=== PATIENT | male | born 1995 | race Hispanic/Latino ===

== ENCOUNTER 2021-05-21 10:22 | Observation (INO) | payer SELFPAY ==
[2021-05-21] VITALS (8 sets, daily range): BP systolic 100–132; BP diastolic 64–85; PULSE 58–99; RESP 12–47; TEMP 36.5; O2SAT 98–100
--- NOTE | ~2021-05-21 | CT_ITS ---
EXAMINATION: CT diagnostic chest wo con DATE: 05/22/2021 16:02 INDICATION: right lung opacity TECHNIQUE: Computed tomography (CT) of the chest was performed without intravenous contrast. Addition al 3D reconstructions utilizing coronal maximum intensity projection (MIP) were performed. Automated exposure control and iterative reconstruction technique were employed. The dose-length product was 23 8.23 mGy-cm. COMPARISON: Chest radiograph dated 05/21/2021 FINDINGS: 1.9 x 1.3 cm mass in the right lower lobe which appears to be comprised of smaller nodules including a couple calcified nodules and which accounts for the opacity on the prior chest radiograph. There ar e numerous additional subcentimeter nodules in the right lower lobe with pleural and perilymphatic di stribution. There are couple additional tiny nodules in the immediately adjacent right middle lobe. R emainder of the lungs are clear. No pulmonary edema or pleural effusion. Heart size is normal. No per icardial effusion. Subtle calcification within mediastinal and right hilar lymph nodes consistent wit h old granulomatous disease. No pathologically enlarged thoracic lymphadenopathy. Diffuse hepatic sam atosis with focal sparing along the gallbladder fossa. Bones are unremarkable. IMPRESSION: 1. Multiple small pulmonary nodules with perilymphatic distribution in the right lower lobe, several of which have coalesced to form the larger 1.9 x 1.3 cm mass is seen on prior chest radiograph. Diffe rential would include sarcoidosis, silicosis or other pneumoconiosis and lymphangitic carcinomatosis. 2. Diffuse hepatic steatosis. Reviewed, dictated and finalized at location B. IMPRESSION: 1. Multiple small pulmonary nodules with perilymphatic distribution in the righ t lower lobe, several of which have coalesced to form the larger 1.9 x 1.3 cm m ass is seen on prior chest radiograph. Differential would include sarcoidosis, silicosis or other pneumoconiosis and lymphangitic carcinomatosis. 2. Diffuse hepatic steatosis.
--- NOTE | ~2021-05-21 | XR_ITS ---
XR chest 1V portable DATE: 05/21/2021 16:57 INDICATION: Hyperglycemia TECHNIQUE: Portable upright AP chest on 05/21/2021 at 1651 hours COMPARISON: None FINDINGS: Normal heart size. No hilar or mediastinal enlargement. There is patchy infiltrate in the right mid to lower lung. The remaining lung arnett are clear. No pl eural effusion or pulmonary vascular congestion or pneumothorax. IMPRESSION: Patchy right mid to lower lung infiltrate Reviewed, dictated and finalized at location A.
[2021-05-21 10:41] LABS: Glucose Point of Care 367 mg/dl (65-105)
[2021-05-21 11:56] LABS: Add Urine Microscopic? YES; Appearance Urine Clear (Clear); Bilirubin Urine Negative (Negative); Blood Urine Negative (Negative); Color Urine Yellow (Yellow); Glucose Urine UA 3+ mg/dL (Negative); Ketones Urine 1+ mg/dL (Negative); Leukocyte Esterase Ur Negative LEU/UL (Negative); Nitrate Urine Negative (Negative); Protein Urine Negative (Negative); Squamous Epithelial Cell Urine Rare /hpf (Few); Urobilinogen Urine Negative mg/dL (<2.0); WBC Urine 0-3 /hpf
[2021-05-21 11:57] LABS: Specific Grav Ur 1.031 (1.001-1.035)
[2021-05-21 12:47] LABS: Basophils Percent Auto 0.3 % (0.2-1.2); Eosinophils Absolute Auto 0.2 K/mm3 (0-0.3); Eosinophils Percent Auto 3.4 % (0-4.4); Hematocrit 44.8 % (42.0-52.0); Hemoglobin 15.9 g/dL (14.0-18.0); Immature Granulocyte Absolute 0.02 K/mm3 (0.00-0.031); Immature Granulocyte Percent A 0.3 % (0-0.5); Lymphocytes Absolute Auto 1.71 K/mm3 (0.9-3.2); Lymphocytes Percent Auto 29.2 % (18.3-44.2); Mean Corpuscular HGB Conc 35.5 g/dl (32-36); Mean Corpuscular Hemoglobin 29.1 pg (26-34); Mean Corpuscular Volume 82.1 fl (80-100); Mean Platelet Volume 10.1 fl (7.4-10.4); Monocytes Absolute Auto 0.3 K/mm3 (0.1-0.6); Monocytes Percent Auto 5.1 % (2.6-8.5); Neutrophils Absolute Auto 3.6 K/mm3 (1.3-6.7); Neutrophils Percent Auto 61.7 % (45.5-73.1); Platelet Count Result 166 k/mm3 (150-375); Red Blood Count 5.46 M/mm3 (4.6-6.20); Red Cell Distribution Width 11.6 % (11.5-14.5); White Blood Count 5.9 K/mm3 (4.5-10.0)
[2021-05-21 13:02] LABS: Alanine Aminotransferase 79 U/L (4-50); Albumin Level 4.6 g/dL (3.5-5.1); Alkaline Phosphatase 86 U/L (38-126); Anion Gap 11 mmol/L (8-16); Aspartate Amino Transferase 41 U/L (17-59); Bilirubin,Total 0.6 mg/dL (0.2-1.3); Blood Urea Nitrogen 12 mg/dL (9-20); Calcium 9.5 mg/dL (8.4-10.2); Carbon Dioxide 24 mmol/L (22-30); Chloride 96 mmol/L (98-107); Estimated CRCL calculation 190 ml/min; Estimated Glomerular Filt Rate > 60; Glucose 299 mg/dL (65-110); Magnesium 1.9 mg/dL (1.6-2.3); Phosphorus 3.6 mg/dL (2.5-4.5); Potassium 4.1 mmol/L (3.4-5.0); Sodium 131 mmol/L (137-145)
--- NOTE | 2021-05-21 14:27 | ED.GENADULT ---
HPI - General Adult General Chief complaint: Recheck/Abnormal Lab/Rx Stated complaint: Hig blood sugar, sent by pcp Time Seen by Provider: 05/21/21 14:02 Source: patient Mode of arrival: ambulatory Limitations: no limitations History of Present Illness HPI narrative: Patient is here in the recommendation of clinic visit on last Friday when she was found to have a blood sugar of 400. He went to the clinic because he had a year-long weight loss, from 210 pounds to 150 pounds. He did not come to the emergency room right away because he had to go to work this week and this was his first available date. He states that he has been urinating frequently, is very thirsty. He denies any wounds that will not heal, no vision changes. Only history of diabetes in his family is in his grandparents had an older age. Onset (ago): year(s) Associated symptoms: denies other symptoms Related Data Home Medications Medication Instructions Recorded Confirmed No Home Medications 05/21/21 05/21/21 Allergies Allergy/AdvReac Type Severity Reaction Status Date / Time No Known Allergies Allergy Unverified 05/21/21 14:02 Review of Systems Review of Systems: All systems reviewed & are unremarkable except as noted in HPI and below [facility] Social History Social History (Updated 05/21/21 @ 14:36 by Candace Levi PA-C) Smoking status: Current every day smoker Tobacco type: cigarettes Alcohol intake: current Alcohol use details: weekends Substance use: never Living arrangements: alone Occupation/Education: occupation Additional occupation/education comments: cook Gender identity (if verbalized by the patient): Male Exam Const: General: healthy appearing, no acute distress and alert Orientation/consciousness: patient oriented x3 HENMT: Head: normal to inspection Mouth: Yes dry mucous membranes Throat: posterior oropharynx normal Eyes: Pupils: Equal, round and reactive pupils present Neck: Neck: no lymphadenopathy Resp: Effort & Inspection: normal respiratory effort Auscultation: clear to auscultation bilaterally Cardio: Rate: regular rate Rhythm: regular rhythm GI: GI Palp: Yes Soft to palpation Auscultation: normal bowel sounds Skin: General skin exam: normal color Extrem: General: normal to inspection Psych: Mental Status: mental status grossly normal Course Course Emergency Course: Patient will be admitted for diabetic education and medication start. He also has bilateral lower lobe infiltrates we will treat as pneumonia. He is Covid negative. Vital Signs Vital signs: Vital Signs Temperature 36.5 C 05/21/21 10:37 Pulse Rate 99 05/21/21 10:37 Respiratory Rate 14 05/21/21 10:37 Blood Pressure 129/81 05/21/21 10:37 Pulse Oximetry 100 05/21/21 10:37 Temperature 36.5 C 05/21/21 10:37 Pulse Rate 69 05/21/21 20:09 Respiratory Rate 15 05/21/21 20:09 Blood Pressure 111/70 05/21/21 20:09 Pulse Oximetry 100 05/21/21 20:09 Medical Decision Making Vital Signs Vital Signs: Vital Signs Temperature 36.5 C 05/21/21 10:37 Pulse Rate 99 05/21/21 10:37 Respiratory Rate 14 05/21/21 10:37 Blood Pressure 129/81 05/21/21 10:37 Pulse Oximetry 100 05/21/21 10:37 Temperature 36.5 C 05/21/21 10:37 Pulse Rate 69 05/21/21 20:09 Respiratory Rate 15 05/21/21 20:09 Blood Pressure 111/70 05/21/21 20:09 Pulse Oximetry 100 05/21/21 20:09 Lab Data Result diagrams: 05/21/21 12:39 05/21/21 12:39 Labs: Lab Results 05/21/21 05/21/21 05/21/21 Range/Units 10:34 11:45 12:39 WBC 5.9 (4.5-10.0) K/mm3 RBC 5.46 (4.6-6.20) M/mm3 Hgb 15.9 (14.0-18.0) g/dL Hct 44.8 (42.0-52.0) % MCV 82.1 (80-100) fl MCH 29.1 (26-34) pg MCHC 35.5 (32-36) g/dl RDW 11.6 (11.5-14.5) % Plt Count 166 (150-375) k/mm3 MPV 10.1 (7.4-10.4) fl Immature Gran % (Auto) 0.3 (0-0.5) % N
[2021-05-21 14:36] LABS: Base Excess ABG -0.7 mEq/l (+/-2.0); Device ROOM AIR; Fractional Inspired Oxygen 21 %; HCO3 ABG 23.2 mEq/l (22.0-26.0); Modified Allen's Test Pass; Oxygen Content ABG 22.2 %vol (16.0-22.0); Oxygen Saturation ABG 97.5 % (95.0-100.0); Oxyhemoglobin 96.1 % THb (90.0-100.0); PCO2 ABG 36.5 mmHg (35.0-45.0); PO2 FiO2 Ratio Arterial Blood 4.57 %; Site Drawn RIGHT RADIAL; Total Hemoglobin 16.4 g/dL (12.0-18.0); pH ABG 7.421 (7.350-7.450)
[2021-05-21] MEDS: SODIUM CHLORIDE 0.9% IV 1,000 ML 999 ML IV CONT ×3 (15:00→17:54)
[2021-05-21 15:22] LABS: Glucose Point of Care 228 mg/dl (65-105)
[2021-05-21 16:59] LABS: Glucose Point of Care 188 mg/dl (65-105)
[2021-05-21 17:59] LABS: EDCOVIDSCREEN Negative (Negative)
--- NOTE | 2021-05-21 19:00 | PM.IMHP ---
H&P: HPI History of Present Illness Date/Time: 05/21/21 19:00 Chief Complaint: High blood sugar. Narrative: This is a previously healthy 26-year-old male who presented to the emergency department earlier today for evaluation of high blood sugar. He was seen at [facility] in [place] last week for evaluation after an unintentional 50 lb weight loss as well as polydipsia and polyuria. At that time he was told his blood sugar was over 400 and he was told to come to the emergency department though he could not make it until today. Random glucose on arrival to the hospital today was 299. His urine did show 3+ glucose and 1+ ketones in his beta hydroxybutyrate was a bit elevated at 1.50. I was asked to admit the patient for new onset diabetes as he does not have a doctor to see in follow-up. Incidentally, his chest x-ray showed patchy right mid and lower lung infiltrate though he has no symptoms to suggest pneumonia. He specifically denies fever, chills, sweats, sinus congestion, rhinorrhea, otalgia, and odynophagia. He has not had sick contacts. He is not vaccinated for COVID but he did have COVID in March 2020. Review of Systems Review of Systems: Twelve systems were reviewed with pertinent positives and negatives as per HPI. He has had an unintentional weight loss as detailed in HPI. Denies nonhealing wounds. He has not had blurry vision though reports gradual worsening of his vision over the last year or so. No neuropathy symptoms. Except as documented, all other systems were reviewed and are negative. [facility] Past Medical History Medical History (Updated 05/21/21 @ 22:56 by Dora Soni PA-C) Diabetes mellitus, new onset (05/21/21) Surgical History Surgical History (Updated 05/21/21 @ 22:53 by Dora Soni PA-C) No history of previous surgery Family History Family History (Updated 05/21/21 @ 22:53 by Dora Soni PA-C) Grandparent Diabetes mellitus Social History Social History (Updated 05/21/21 @ 22:55 by Dora Soni PA-C) Social History: The patient lives in [place] with his girlfriend and her 2 children. He is a cook at a local restaurant. He smokes socially, typically only when drinking. He will have an occasional drink here and there throughout the week and drinks heavier on the weekends though he has cut back significantly. No illicit substance use. He designates his mother, Heather Zelaya, as his surrogate decision maker. Code status: Full code. Meds Home Medications and Allergies Home Medications Medication Instructions Recorded Confirmed Type No Home Medications 05/21/21 05/21/21 History Allergies Allergy/AdvReac Type Severity Reaction Status Date / Time No Known Allergies Allergy Unverified 05/21/21 14:02 Vital Signs Vital Signs - 24 hr 05/21/21 10:37 05/21/21 13:59 05/21/21 16:15 Temperature 97.7 F Pulse Rate 99 67 59 L Respiratory Rate 14 18 12 Blood Pressure 129/81 132/85 100/64 Pulse Oximetry 100 100 99 05/21/21 16:30 05/21/21 17:45 05/21/21 18:36 Temperature Pulse Rate 71 58 L 64 Respiratory Rate 16 47 H 14 Blood Pressure 105/67 110/74 110/70 Pulse Oximetry 98 99 99 05/21/21 19:17 05/21/21 20:09 Temperature Pulse Rate 65 69 Respiratory Rate 20 15 Blood Pressure 103/83 111/70 Pulse Oximetry 100 100 Exam Narrative: General: Well-developed male sitting up in bed no distress. Weight: 72.7 kg. BMI: 23.0. HEENT: PERRL, EOMI. Sclerae anicteric. Tacky mucous membranes. Oropharynx clear. Neck: Supple. No thyromegaly. Respiratory: Lungs are clear to auscultation bilaterally. Cardiovascular: Regular rate and rhythm with S1-S2. Gastrointestinal: Abdomen is soft, nontender, and nondistended with positive bowel sounds. Skin: Warm and dry. No rash or lesions on limited exam. Extremities: No cyanosis, clubbing, or edema. Radial and pedal pulses intact. Neurological: Alert. Cranial ner
[2021-05-21 20:40] LABS: Glucose Point of Care 197 mg/dl (65-105)
[2021-05-22] VITALS: BP 100/61; PULSE 60; RESP 16; TEMP 36.1; O2SAT 100
[2021-05-22 00:32] LABS: Anion Gap 7 mmol/L (8-16); Blood Urea Nitrogen 11 mg/dL (9-20); CRP < 0.5 mg/dL (<1.0); Calcium 8.4 mg/dL (8.4-10.2); Carbon Dioxide 27 mmol/L (22-30); Chloride 100 mmol/L (98-107); Estimated CRCL calculation 140 ml/min; Estimated Glomerular Filt Rate > 60; Glucose 496 mg/dL (65-110); Magnesium 1.8 mg/dL (1.6-2.3); Potassium 3.8 mmol/L (3.4-5.0); Sodium 134 mmol/L (137-145)
[2021-05-22 00:37] VITALS: BMI 24.3
[2021-05-22 01:11] LABS: Procalcitonin 0.1 ng/mL
[2021-05-22 01:43] LABS: Hemoglobin A1C 11.5 % (<5.7)
[2021-05-22 06:12] VITALS: BP 102/55; PULSE 55; RESP 16; TEMP 36.4; O2SAT 97
[2021-05-22 07:17] LABS: Anion Gap 6 mmol/L (8-16); Blood Urea Nitrogen 8 mg/dL (9-20); Calcium 9.3 mg/dL (8.4-10.2); Carbon Dioxide 28 mmol/L (22-30); Chloride 104 mmol/L (98-107); Estimated CRCL calculation 162 ml/min; Estimated Glomerular Filt Rate > 60; Glucose 254 mg/dL (65-110); Magnesium 1.7 mg/dL (1.6-2.3); Potassium 3.9 mmol/L (3.4-5.0); Sodium 138 mmol/L (137-145)
[2021-05-22 07:41] LABS: Glucose Point of Care 261 mg/dl (65-105)
--- NOTE | 2021-05-22 07:52 | ADMGEN ---
This patient, Jono Zelaya, was admitted to 3 [facility] Surg Room 326-01. Patient/family oriented to hospital policies and general routines including ID bracelet, bed and alarms, visiting hours, pain management, procedures, bathroom and other care routines, personal items, smoking policy, room service/diet, and visiting hours. Information on how to activate the Rapid Response Team has been discussed. Patient/Family are encouraged to report perceived risks to care and to ask questions if they do not understand what they are told or what they should do. Explained hospital policy, labs, and especially the importance of blood glucose monitoring. Patient was attentive and asked questions appropriately. He was shown the call light system and demonstrated ability to use the bed, transfer, and ambulate w/o difficulty.
[2021-05-22 08:31] LABS: Glucose Point of Care 235 mg/dl (65-105)
[2021-05-22] MEDS: metFORMIN HCL 250 MG TABLET PO (10:02)
[2021-05-22] MEDS: INSULIN ASPART (*BKC) 100 UNITS/ML SUB-Q ×2 (10:02→13:48)
[2021-05-22 11:45] VITALS: BMI 24.3
[2021-05-22 12:08] LABS: Glucose Point of Care 289 mg/dl (65-105)
[2021-05-22 14:00] VITALS: BP 107/65; PULSE 65; RESP 14; TEMP 36.4; O2SAT 99
--- NOTE | 2021-05-22 15:44 | PM.DS ---
DS: Admitting Diagnosis Admitting Diagnosis hyperglycemia DS: Discharge Diagnosis Discharge Diagnosis (1) Diabetes mellitus, new onset: Onset Date: 05/21/21 Code(s): E11.9 - Type 2 diabetes mellitus without complications Status: Acute Assessment and Plan: The patient has had unintentional weight loss as well as polydipsia and polyuria for nearly a year. For now will continue with hydration and sliding scale insulin, A2c caem bback at 11.5. diaagnosed with diabetes mellitus. likley type 2. no evidence of DKA. though elevated betahydroxybutyrate. given ivf. diabetes educatin. provided informration. will start insulin , he feels comfrotable starting. will do nPH 70/30 because of cost issues. 10 units bid with meals and titrate this as op basis. also place on metfomrin 500 mg po bid. blood sugar in 200s at the time of discharge. (2) Hyperglycemia: Code(s): R73.9 - Hyperglycemia, unspecified Status: Acute Assessment and Plan: Plan is as detailed above. (3) Right pulmonary infiltrate on CXR: Code(s): R91.8 - Other nonspecific abnormal finding of lung field Status: Acute Assessment and Plan: Patient has no symptoms to suggest pneumonia. His white blood cell count is normal. He is afebrile. At the time I will hold on any further antibiotics pending CRP and procalcitonin. Patient did have COVID 19 last year and it seems like that is pretty far out for him to have residual infiltrates. discussed this with the patient. crp and procalcitonin came back normal. covid screen is negative too. coud be scarrring from the covid, very miniaml smoking history. discussed getting ct chest for cathy and he agreed. findings of 1. Multiple small pulmonary nodules with perilymphatic distribution in the right lower lobe, several of which have coalesced to form the larger 1.9 x 1.3 cm mass is seen on prior chest radiograph. Differential would include sarcoidosis, silicosis or other pneumoconiosis and lymphangitic carcinomatosis. 2. Diffuse hepatic steatosis. he is advsied that we need to biospy this nodule to find out what this is. He is advised to follow up with pulmonary doctor for further evaluation of this and get a biopsy of this nodule.he opts for op follow up on this. will have him follow up with pulmonary as op basis. DS: Summary Hospital Course Hospital Course: see abvoe Time Spent with Patient Time attestation: Total time spent providing and/or coordinating discharge services:50 mins Exam Narrative: General: Well-developed male sitting up in bed no distress HEENT: PERRL, EOMI. Sclerae anicteric. Tacky mucous membranes. Oropharynx clear. Neck: Supple. No thyromegaly. Respiratory: Lungs are clear to auscultation bilaterally. no respiratory distress Cardiovascular: Regular rate and rhythm with S1-S2. Gastrointestinal: Abdomen is soft, nontender, and nondistended with positive bowel sounds. Skin: Warm and dry. No rash or lesions on limited exam. Extremities: No cyanosis, clubbing, or edema. Radial and pedal pulses intact. Neurological: Alert. Cranial nerves 2-12 are grossly intact. No gross focal deficits to casual conversation. Psychiatric: Pleasant and cooperative with normal mood and affect. Judgment and insight intact. DS: Data Data Completed and Pending Labs on day of discharge: Labs from last 24 hours 05/22/21 05/22/21 05/22/21 12:04 08:05 06:27 Sodium 138 Potassium 3.9 Chloride 104 Carbon Dioxide 28 Anion Gap 6 L BUN 8 L Creatinine 0.60 L Estim Creat Clear Calc 162 Estimated GFR > 60 Glucose 254 H POC Capillary Glucose 289 H 235 H Hemoglobin A1c C-Peptide Calcium 9.3 Magnesium 1.7 C-Reactive Protein Procalcitonin Islet Cell Ab Screen Islet Ab Scn Res Rcv SARS-CoV-2 IgG/IgM Ag?Rapid 05/22/21 05/21/21 05/21/21 05:48 23:44 23:44 Sodium Potassium Chl
[2021-05-24 07:18] LABS: C-Peptide 1.71 ng/mL (0.80-3.85)
[2021-06-01 19:27] LABS: Islet Cell Antibody Screen NEGATIVE (NEGATIVE)
== END 2021-05-22 19:00 | disposition home or self-care (01) ==
LOC: ANHED 14:19 → ANH3MEDSUR 22:08
PROVIDERS: Physician Assistant; Admitting Provider Internal Medicine; Emergency Provider Family Medicine; Visit Provider Internal Medicine
DX: E11.65 Type 2 diabetes mellitus with hyperglycemia (principal); Z20.822 Contact with and (suspected) exposure to COVID-19; R91.8 Other nonspecific abnormal finding of lung field
CPT/HCPCS: 36415; 36600; 71045; 71250; 80048; 80053; 81001; 82010; 82805; 82948; 83036; 83735; 84100; 84145; 84681; 85025; 86140; 86341; 87426; 96361; 96365; 99285; A9270; C9803; G0378; G0379; J0456; J1815; J7030